=== PATIENT | male | born 1975 | race American Indian/Alaskan Native ===

== ENCOUNTER 2017-04-17 15:42 | Emergency (ER) | payer MEDICAID, OTHER ==
[2017-04-17 15:42] VITALS: BMI 27.2
[2017-04-17 15:49] VITALS: BP 147/91; TEMP 97.6
--- NOTE | 2017-04-17 16:14 | C.PDOC ---
History Of Present Illness 41 y/o male hx of chronic back pain presents to the ED with complaints of back pain, typical of chronic pain. Pt states he ran out of percocet and "no doctor will give it to me." Denies new trauma, fever, chills, numbness or any other complaints. Time Seen by Provider: 04/17/17 16:06 Chief Complaint (Nursing): Back Pain History Per: Patient History/Exam Limitations: no limitations Onset/Duration Of Symptoms: Days Current Symptoms Are (Timing): Still Present Quality Of Discomfort: "Pain" Severity: Moderate Previous Symptoms: Chronic Pain Associated Symptoms: None Recent travel outside of the [place]: No Past Medical History Reviewed: Historical Data, Nursing Documentation, Vital Signs Vital Signs: Last Vital Signs Temp 97.6 F 04/17/17 15:47 Pulse 75 04/17/17 16:37 Resp 18 04/17/17 16:37 BP 147/91 H 04/17/17 15:47 Pulse Ox 98 04/17/17 16:37 - Medical History PMH: Back Problems, Bronchitis, Gastrointestinal Ulcer (peptic ulcer), Hyperthyroidism Family History: States: Unknown Family Hx - Social History Hx Tobacco Use: Yes Hx Alcohol Use: No Hx Substance Use: No - Immunization History Hx Tetanus Toxoid Vaccination: Yes Hx Influenza Vaccination: No Hx Pneumococcal Vaccination: No Review Of Systems Constitutional: Negative for: Fever, Chills Genitourinary: Negative for: Incontinence Musculoskeletal: Positive for: Back Pain Neurological: Negative for: Weakness, Numbness Physical Exam - Physical Exam Appears: Non-toxic, No Acute Distress Skin: Warm, Dry, No Rash Head: Atraumatic, Normacephalic Neck: Normal, Normal ROM, Supple Chest: Symmetrical Cardiovascular: Rhythm Regular, No Murmur Respiratory: Normal Breath Sounds, No Rales, No Rhonchi, No Wheezing Gastrointestinal/Abdominal: Normal Exam, Soft, No Tenderness Back: No Vertebral Tenderness, Other (no saddle anesthesia) Extremity: Normal ROM Extremity: Bilateral: Atraumatic Neurological/Psych: Oriented x3, Normal Speech, Normal Motor, Normal Sensation ED Course And Treatment O2 Sat by Pulse Oximetry: 99 (room air) Pulse Ox Interpretation: Normal Medical Decision Making Medical Decision Making: Pt with chronic pain syndrome, advised cannot treat pain with narcotics, nor will prescribe narcotic pain medication. pt seen eloping from er. Disposition - Disposition Disposition: ELOPEMENT - ER ONLY Disposition Time: 16:12 Condition: STABLE Additional Instructions: please follow up with your doctor. return to er with worsening symptoms or concerns. Prescriptions: Cyclobenzaprine [Cyclobenzaprine HCl] 10 mg PO TID PRN #21 tab PRN Reason: Muscle Spasm Naproxen 500 mg PO BID PRN #14 tab PRN Reason: Pain, Mild (1-3) Instructions: Chronic Back Pain (ED) - Clinical Impression Clinical Impression: Chronic back pain - Scribe Statement The provider has reviewed the documentation as recorded by the Jeannie Murphy Provider Attestation: All medical record entries made by the Jeannie were at my direction and personally dictated by me. I have reviewed the chart and agree that the record accurately reflects my personal performance of the history, physical exam, medical decision making, and the department course for this patient. I have also personally directed, reviewed, and agree with the discharge instructions and disposition.
[2017-04-17 16:38] VITALS: PULSE 75; RESP 18
[2017-04-17 18:16] VITALS: O2SAT 99
== END 2017-04-17 16:39 | disposition left against medical advice (07) ==
LOC: C.ER 15:42
DX: M54.5 Low back pain (principal); G89.29 Other chronic pain